=== PATIENT | female | born 2000 | race Two or more races ===

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

== ENCOUNTER 2018-01-18 03:06 | Emergency (ER) | payer OTHER ==
[~2018-01-18] VITALS: Ht 162.6 cm; Wt 95.0 kg
[~2018-01-18 03:06] MED LIST changes: +ZOFRAN ODT4 MG PO
[2018-01-18 03:24] LABS: APPEARANCE CLOUDY ((CLEAR)); BILIRUBIN NEGATIVE; BLOOD NEGATIVE; COLOR YELLOW ((YELLOW)); GLUCOSE (STRIP) NEGATIVE; KETONES NEGATIVE; LEUKOCYTES TRACE; NITRITE NEGATIVE; PROTEIN (STRIP) 100; SPECIFIC GRAVITY 1.038 (1.000-1.030)
[2018-01-18 03:29] LABS: HEMATOCRIT 39.2 % (36.0-46.0); HEMOGLOBIN 12.9 G/DL (11.9-15.5); MCHC 32.9 G/DL (30.0-36.0); PLATELET COUNT 282 K/uL (156-360); RBC DIS.WIDTH-SD 41.3 % (39-53); RED BLOOD COUNT 4.78 M/uL (3.80-5.20); WHITE BLOOD COUNT 10.6 K/uL (4.1-10.2)
[2018-01-18 03:31] LABS: BACTERIA NONE SEEN /HPF; EPITHELIAL CELLS 3+ /HPF; MUCUS 1+ /LPF; RED BLOOD CELLS 0-5 /HPF (0-5); UCUL ADDED? NO; WHITE BLOOD CELLS 0-5 /HPF (0-5)
[2018-01-18 03:37] LABS: ALBUMIN 4.1 g/dL (3.2-4.8)
[2018-01-18 03:38] LABS: CHLORIDE 108 mEq/L (99-109); POTASSIUM 3.6 mEq/L (3.7-5.4); SODIUM 141 mEq/L (136-147)
[2018-01-18 03:40] LABS: GLUCOSE 91 mg/dL (70-99); TOTAL PROTEIN 7.2 g/dL (6.4-8.3)
[2018-01-18 03:42] LABS: TOTAL BILIRUBIN 0.4 mg/dL (0.0-1.0)
[2018-01-18 03:43] LABS: ALKALINE PHOSPHATASE 84 IU/L (3-129)
[2018-01-18 03:44] LABS: CREATININE 0.8 mg/dL (0.6-1.3); GFR ESTIMATE (CALCULATED) > 59 mL/min/
[2018-01-18 03:45] LABS: AST (GOT) 20 IU/L (2-34); UREA NITROGEN (BUN) 12 mg/dL (9-23)
[2018-01-18 03:46] LABS: ALT (GPT) 11 IU/L (3-49)
[2018-01-18 03:47] LABS: LIPASE 18 U/L (1.0-51.0)
[2018-01-18 03:53] LABS: QUANTITATIVE HCG < 4.0 MIU/ML
[2018-01-18] MEDS ORDERED: OMEPRAZOLE40 M1 PO (03:59)
[2018-01-18] MEDS ORDERED: ZOFRAN ODT4 MG PO (03:59)
[2018-01-18 04:10] VITALS: BP 118/74
== END 2018-01-18 04:11 | disposition home or self-care (01) ==
LOC: EME 03:06
PROVIDERS: Physician Assistant
DX: R10.10 Upper abdominal pain, unspecified (principal); N91.2 Amenorrhea, unspecified; F32.9 Major depressive disorder, single episode, unspecified; F17.200 Nicotine dependence, unspecified, uncomplicated
CPT/HCPCS: 76705; 80053; 81003; 83690; 84702; 85027; 99281; 99284

== ENCOUNTER 2018-04-28 14:55 | Emergency (ER) | payer OTHER ==
[~2018-04-28] VITALS: Ht 165.1 cm; Wt 90.0 kg
[~2018-04-28 14:55] MED LIST changes: +OMEPRAZOLE40 M1 PO
[2018-04-28 17:58] LABS: HEMATOCRIT 40.7 % (36.0-46.0); HEMOGLOBIN 13.4 G/DL (11.9-15.5); MCH 26.4 PG (29.0-34.0); MCHC 32.9 G/DL (30.0-36.0); MCV 80.3 FL (83-99); PLATELET COUNT 297 K/uL (156-360); RBC DIS.WIDTH-CV 14.3 % (11.8-14.6); RBC DIS.WIDTH-SD 41.4 % (39-53); RED BLOOD COUNT 5.07 M/uL (3.80-5.20); WHITE BLOOD COUNT 11.6 K/uL (4.1-10.2)
[2018-04-28 18:04] LABS: ALBUMIN 3.9 g/dL (3.2-4.8)
[2018-04-28 18:05] LABS: CHLORIDE 106 mEq/L (99-109); POTASSIUM 3.8 mEq/L (3.7-5.4); SODIUM 138 mEq/L (136-147)
[2018-04-28 18:07] LABS: GLUCOSE 91 mg/dL (70-99); TOTAL PROTEIN 7.3 g/dL (6.4-8.3)
[2018-04-28 18:09] LABS: TOTAL BILIRUBIN 0.4 mg/dL (0.0-1.0)
[2018-04-28 18:10] LABS: ALKALINE PHOSPHATASE 88 IU/L (3-129)
[2018-04-28 18:11] LABS: CREATININE 0.8 mg/dL (0.6-1.3); GFR ESTIMATE (CALCULATED) > 59 mL/min/
[2018-04-28 18:12] LABS: AST (GOT) 19 IU/L (2-34); UREA NITROGEN (BUN) 9 mg/dL (9-23)
[2018-04-28 18:14] LABS: ALT (GPT) 14 IU/L (3-49); LIPASE 20 U/L (1.0-51.0)
[2018-04-28 18:22] LABS: APPEARANCE CLEAR ((CLEAR)); BILIRUBIN NEGATIVE; BLOOD NEGATIVE; COLOR YELLOW ((YELLOW)); GLUCOSE (STRIP) NEGATIVE; KETONES NEGATIVE; LEUKOCYTES NEGATIVE; NITRITE NEGATIVE; PROTEIN (STRIP) NEGATIVE; SPECIFIC GRAVITY 1.021 (1.000-1.030); UCUL ADDED? NO; UROBILINOGEN 0.2 MG/DL (0.2-1.0)
[2018-04-28 18:22] LABS: QUANTITATIVE HCG < 4.0 MIU/ML
[2018-04-28 20:11] LABS: SOURCE SWAB
[2018-04-28 20:51] VITALS: BP 147/86
[2018-04-28 22:17] LABS: CANDIDA DNA PROBE NEGATIVE; GARDNERELLA DNA PROBE POSITIVE; TRICHOMONAS DNA PROBE NEGATIVE
== END 2018-04-28 20:52 | disposition home or self-care (01) ==
LOC: EME 14:55
PROVIDERS: Physician Assistant
DX: Z20.2 Contact with and (suspected) exposure to infections with a predominantly sexual mode of transmission (principal); Z11.3 Encounter for screening for infections with a predominantly sexual mode of transmission; Z32.02 Encounter for pregnancy test, result negative; R11.0 Nausea; N89.8 Other specified noninflammatory disorders of vagina; F17.200 Nicotine dependence, unspecified, uncomplicated
CPT/HCPCS: 80053; 81003; 83690; 84702; 85027; 87210; 87480; 87491; 87510; 87591; 87660; 99281; 99284; J0696